=== PATIENT | female | born 1990 | race Asian ===

== ENCOUNTER 2023-07-31 05:42 | Inpatient (IN) | payer OTHER ==
[2023-07-31] MEDS ORDERED: Oxytocin 30 units/NS 500 ML 500 ML IV SCH (06:28)
[2023-07-31] MEDS ORDERED: Methylergonovine 0.2 MG/ML VIAL IM PRN (06:28)
[2023-07-31] MEDS ORDERED: Ondansetron PF 4 MG/2 ML Vial IVP PRN ×3 (06:28→06:59)
[2023-07-31] MEDS ORDERED: Famotidine/PF 20 mg/2ml Vial SLOW IVP PRN (06:28)
[2023-07-31] MEDS ORDERED: CEFAZOLIN 2 GM in Sodium Chloride 0.9% 100 ML IVPB SCH (06:28)
[2023-07-31] MEDS ORDERED: Promethazine HCl 25 MG/ML VIAL IM PRN ×3 (06:28→09:33)
[2023-07-31] MEDS ORDERED: Carboprost 250 MCG/ML AMP IM PRN (06:28)
[2023-07-31] MEDS ORDERED: Tranexamic Acid 1,000 MG/10 ML VIAL IVP PRN (06:28)
[2023-07-31] MEDS ORDERED: hydrALAZINE 20 MG/ML VIAL SLOW IVP PRN ×2 (06:28→09:33)
[2023-07-31] MEDS ORDERED: Diphenoxylate HCl/Atropine Tablet PO PRN (06:28)
[2023-07-31] MEDS ORDERED: Misoprostol 200 MCG TAB PR PRN (06:28)
[2023-07-31] MEDS ORDERED: Lactated Ringer's 1,000 ML IV SCH (06:28)
[2023-07-31] MEDS ORDERED: Bicitra 30 ML UDCUP PO PRN (06:28)
[2023-07-31 06:57] LABS: Hematocrit 37.3 % (34.9-44.5); Hemoglobin 13.1 g/dL (12.0-15.5); Mean Corpuscular HGB CONC 35.1 g/dL (32.0-36.0); Mean Corpuscular Hemoglobin 31.7 pg (27.0-33.0); Mean Corpuscular Volume 90.3 fl (81.6-98.3); Mean Platelet Volume 10.5 fl (7.4-10.4); Platelet Count 212 10x3/uL (150-450); RBC Distribution Width 13.4 % (11.5-14.5); Red Blood Cell (RBC) Count 4.13 10x6/uL (3.90-5.03); White Blood Cell (WBC) Count 11.5 10x3/uL (3.5-10.5)
[2023-07-31] MEDS ORDERED: Naloxone HCl 0.4 mg/ml Vial IVP PRN ×2 (06:59)
[2023-07-31] MEDS ORDERED: Meperidine HCl/PF 25 MG (1 mL) VIAL SLOW IVP PRN (06:59)
[2023-07-31] MEDS ORDERED: fentaNYL 50 mcg/mL 1 mL Vial SLOW IVP PRN (06:59)
[2023-07-31] MEDS ORDERED: HYDROmorphone 0.5 MG/0.5 ML SYRINGE SLOW IVP PRN (06:59)
[2023-07-31] MEDS ORDERED: diphenhydrAMINE 50 MG/ML VIAL IVP PRN (06:59)
[2023-07-31] MEDS ORDERED: Moisturizing Cream (Eucerin) 113 GM JAR TOP PRN (06:59)
[2023-07-31] MEDS ORDERED: Naloxone HCl 0.4 mg/ml Vial IV PRN (06:59)
[2023-07-31] MEDS ORDERED: Ketorolac Tromethamine 30 MG (1 mL) VIAL IVP PRN (06:59)
[2023-07-31] MEDS ORDERED: Ketorolac Tromethamine 30 MG (1 mL) VIAL IVP SCH (07:00)
[2023-07-31] MEDS ORDERED: Communication Order-Pharmacy FS SCH (07:00)
[2023-07-31 07:11] LABS: HBsAg Index 0.24 S/CO (0-0.99); Hep B Surf Ag - L&D Non-Reactive S/CO (NonReactive)
[2023-07-31 07:12] LABS: Syphilis Antibody Nonreactive (Nonreactive); Syphilis Antibody Index 0.03 S/CO (<1.00 Non-Reactive)
[2023-07-31 08:25] VITALS: BMI 23.0
[2023-07-31] MEDS: fentaNYL 50 mcg/mL 1 mL Vial ONE (08:45)
[2023-07-31] MEDS: Dexamethasone 4 mg/ml Vial ONE (08:46)
[2023-07-31] MEDS: Oxytocin 10 UNITS/ML VIAL ONE (08:46)
[2023-07-31] MEDS: Midazolam HCl 2 mg/2 ml Vial ONE (08:46)
[2023-07-31] MEDS: Morphine PF 10 MG/10 ML VIAL ONE (08:46)
[2023-07-31] MEDS: Phenylephrine 10 MG/ML VIAL ONE (08:46)
[2023-07-31] MEDS: Ondansetron PF 4 MG/2 ML Vial ONE (08:46)
[2023-07-31] MEDS: CEFAZOLIN 2 GM VIAL ONE (08:46)
[2023-07-31] MEDS ORDERED: Meperidine HCl/PF 25 MG (1 mL) VIAL IM PRN (09:33)
[2023-07-31] MEDS ORDERED: Bisacodyl 10 MG SUPP PR PRN (09:33)
[2023-07-31] MEDS ORDERED: diphenhydrAMINE 25 MG CAP PO PRN (09:33)
[2023-07-31] MEDS ORDERED: Lanolin Ointment 7 GM TUBE TOP PRN (09:33)
[2023-07-31] MEDS: Ketorolac Tromethamine 30 MG (1 mL) VIAL IVP SCH (12:47)
[2023-07-31] MEDS: Simethicone Chewable 80 MG TAB PO PRN (12:56)
[2023-07-31] MEDS: Ondansetron PF 4 MG/2 ML Vial IVP PRN (12:56)
[2023-07-31] MEDS: Boostrix 0.5 ML (Tdap) VIAL (>/=7 yrs of age) IM ONE (15:19)
[2023-07-31] MEDS: Docusate 100 MG CAP PO SCH (21:33)
[2023-07-31] MEDS: Ferrous Sulfate 325 MG TAB PO SCH (21:33)
[2023-07-31] MEDS: HYDROcodone/Acetaminophen 5/325 mg Tablet PO PRN (21:33)
[2023-08-01 05:31] LABS: Hematocrit 30.2 % (34.9-44.5); Hemoglobin 10.6 g/dL (12.0-15.5); Mean Corpuscular Hemoglobin 31.9 pg (27.0-33.0); Red Blood Cell (RBC) Count 3.32 10x6/uL (3.90-5.03); White Blood Cell (WBC) Count 15.6 10x3/uL (3.5-10.5)
[2023-08-01 05:32] LABS: Mean Corpuscular HGB CONC 35.1 g/dL (32.0-36.0); Mean Platelet Volume 10.7 fl (7.4-10.4); Platelet Count 179 10x3/uL (130-400); RBC Distribution Width 13.4 % (11.5-14.5)
[2023-08-01] MEDS: Prenatal Vitamin 1 TAB PO SCH (08:21)
[2023-08-01] MEDS: HYDROcodone/Acetaminophen 5/325 mg Tablet PO PRN (08:23)
[2023-08-01] MEDS: Ibuprofen 800 MG TAB PO SCH (14:36)
[2023-08-03 07:45] VITALS: BP 106/67; TEMP 98
== END 2023-08-03 19:15 | disposition home or self-care (01) | DRG 788 ==
LOC: CSHLD 05:42 → CSHPP 10:50
PROVIDERS: ADMIT Family Medicine; ATTEND Family Medicine
PROC: 10D00Z1 Extraction of Products of Conception, Low, Open Approach (ICD-10-PCS; principal; 2023-07-31)
DX: O34.211 Maternal care for low transverse scar from previous cesarean delivery (principal); Z3A.39 39 weeks gestation of pregnancy; Z37.0 Single live birth
CPT/HCPCS: 36415; 36416; 51702; 85027; 85461; 86780; 86850; 86870; 86900; 86901; 87340; 90384; 96372; J1100; J1885; J2250; J2274; J2371; J2405; J2590; J3010